=== PATIENT | female | born 1955 | race Caucasian/White ===

== ENCOUNTER 2020-02-24 08:37 | Outpatient (CLI) | payer MEDICARE, MEDICAID, SELFPAY ==
--- NOTE | ~2020-02-24 | XR_ITS ---
EXAMINATION: XR UGI w small bowel EXAM DATE: 02/24/2020 10:56 INDICATION: K57.32 - Diverticulitis of large intestine without perforation or abscess without bleedin g TECHNIQUE: Dispersion Mixer radiograph was acquired. Single and double contrast barium upper GI examination was performed according to patient abilities, followed by small bowel series. Spot images of the termina l ileum were acquired. The DAP for this procedure 4.2 Gycm2. There is no prior study for compariso n. FINDINGS: There is no esophageal stricture, diverticulum or mass identified. Gastroesophageal juncti on is normal in appearance. Reflux was not demonstrated during this examination. The stomach has a normal appearance without evidence of mass lesion, ulceration or filling defect. T here is normal rugal fold pattern. The duodenum and duodenal sweep are normal in appearance. Ileal and jejunal fold patterns are normal. There is no small bowel wall thickening or mass effect d isplacing small bowel. There are no intraluminal filling defects identified. There is no small naina l dilation. Terminal ileum is normal in appearance. Contrast reached the colon by 1.5 hours time. IMPRESSION: Unremarkable UGI small bowel exam. Reviewed, dictated and finalized at [facility]. ARGER
== END 2020-02-24 08:38 | disposition home or self-care (01) ==
LOC: ANHIMG 08:41
PROVIDERS: PCP Family Medicine; Visit Provider Surgery
DX: K57.32 Diverticulitis of large intestine without perforation or abscess without bleeding (principal)
CPT/HCPCS: 74240; 74248

== ENCOUNTER 2021-01-02 10:57 | Outpatient (CLI) | payer MEDICARE, MEDICAID, SELFPAY ==
[2021-01-02 11:37] LABS: Hematocrit 43.3 % (37.0-47.0); Hemoglobin 13.8 g/dL (12.0-15.0); Mean Corpuscular HGB Conc 31.9 g/dl (32-36); Mean Corpuscular Hemoglobin 29.2 pg (26-34); Mean Corpuscular Volume 91.7 fl (80-100); Platelet Count Result 189 k/mm3 (150-375); Red Blood Count 4.72 M/mm3 (4.2-5.4); Red Cell Distribution Width 13.2 % (11.5-14.5); White Blood Count 6.1 K/mm3 (4.5-10.0)
[2021-01-02 12:28] LABS: Alanine Aminotransferase 46 U/L (4-35); Albumin Level 4.7 g/dL (3.5-5.1); Alkaline Phosphatase 98 U/L (38-126); Anion Gap 11 mmol/L (8-16); Aspartate Amino Transferase 45 U/L (14-36); Bilirubin,Total 0.4 mg/dL (0.2-1.3); Blood Urea Nitrogen 21 mg/dL (7-17); CRP < 0.5 mg/dL (<1.0); Calcium 9.5 mg/dL (8.4-10.2); Carbon Dioxide 28 mmol/L (22-30); Chloride 104 mmol/L (98-107); Estimated Glomerular Filt Rate > 60; Glucose 192 mg/dL (65-110); Potassium 4.4 mmol/L (3.4-5.0); Sodium 143 mmol/L (137-145)
== END 2021-01-02 10:58 | disposition home or self-care (01) ==
PROVIDERS: PCP Family Medicine; Visit Provider Nurse Practitioner Family
DX: K57.32 Diverticulitis of large intestine without perforation or abscess without bleeding (principal)
CPT/HCPCS: 36415; 80053; 85027; 86140

== ENCOUNTER 2021-01-13 07:17 | Outpatient (CLI) | payer OTHER, SELFPAY ==
--- NOTE | ~2021-01-13 | CT_ITS ---
EXAMINATION: CT abdomen pelvis w con DATE: 01/13/2021 07:52 INDICATION: Diverticulitis of colon; evaluate for abscess. TECHNIQUE: Computed tomography (CT) of the abdomen and pelvis was performed without intravenous contr ast. Automated exposure control and iterative reconstruction technique were employed. Exam dose: 150 7.97 mGy-cm total exam DLP. COMPARISON: None. FINDINGS: There is elevation/eventration of the right diaphragm and associated right basilar atelecta sis at the middle lobe. The lung bases are otherwise clear. Coronary artery calcification. Heart size is within normal limits. No pericardial or pleural effusion. There is diffuse hepatic steatosis. No hepatic space-occupying mass lesion is detected. Status post cholecystectomy. No bile duct or pancreatic duct dilatation. Mild splenomegaly, with 14.8 cm splenic vertical dimension. No pancreatic mass lesion or calcification. Approximately 1.3 x 1.8 cm right adrenal probable adenoma. The adrenal glands are otherwise unremarka ble. 8 mm lateral lower pole right renal exophytic cyst. The kidneys are otherwise unremarkable. No urinar y tract calculus or hydroureteronephrosis. Status post hysterectomy. Normal caliber of the abdominal aorta. No intraperitoneal or retroperitoneal or pelvic mass lesion or adenopathy or ascites. Diverticulosis of the sigmoid colon. No CT evidence of diverticulitis. No abscess is evident. No naina l obstruction or intraperitoneal free air. Small fat-containing umbilical hernia. Upper anterior abdominal wall mesh repair. Degenerative changes of the thoracic and lumbar spine. There is grade 1 anterolisthesis at L4-5 due t o degenerative change at the apophyseal joints. No suspicious osteolytic or osteoblastic lesions. IMPRESSION: Diverticulosis of the sigmoid colon; no CT evidence of diverticulitis. No diverticular a bscess Hepatic steatosis Status post cholecystectomy Mild splenomegaly 8 mm right renal cyst Status post hysterectomy Reviewed, dictated and finalized at [facility]. Reviewed, dictated and finalized at [facility]. IMPRESSION: Diverticulosis of the sigmoid colon; no CT evidence of diverticuli tis. No diverticular abscess Hepatic steatosis Status post cholecystectomy Mild splenomegaly 8 mm right renal cyst Status post hysterectomy
== END 2021-01-13 07:18 | disposition home or self-care (01) ==
PROVIDERS: PCP Family Medicine; Visit Provider Nurse Practitioner Family
DX: K57.30 Diverticulosis of large intestine without perforation or abscess without bleeding (principal); K76.0 Fatty (change of) liver, not elsewhere classified; Z90.49 Acquired absence of other specified parts of digestive tract; R16.1 Splenomegaly, not elsewhere classified; N28.1 Cyst of kidney, acquired; Z90.710 Acquired absence of both cervix and uterus
CPT/HCPCS: 74177; Q9967